=== PATIENT | male | born 1985 | race Caucasian/White ===

== ENCOUNTER 2024-08-11 20:14 | Emergency (ER) | payer MEDICAID, OTHER ==
[2024-08-11] MEDS: Amoxicillin/Clavulanate K 875-125 MG Tab PO ONE (22:15)
== END 2024-08-11 22:17 | disposition home or self-care (01) ==
LOC: MW.ED 20:14
DX: S51.852A Open bite of left forearm, initial encounter (principal); Z75.3 Unavailability and inaccessibility of health-care facilities; Z79.899 Other long term (current) drug therapy; W54.0XXA Bitten by dog, initial encounter; Y93.89 Activity, other specified
CPT/HCPCS: 12001; 99283; A9270